=== PATIENT | female | born 1935 | race Caucasian/White ===

== ENCOUNTER 2019-02-17 17:42 | Emergency (ER) | payer MEDICARE ==
--- NOTE | 2019-02-17 18:59 | ED ---
Head Injury - HPI Summary HPI Summary: This pt is a 83 Y/O F presenting to [facility] for a fall that occurred while she was leaving the bathroom. She states that she had a loss of consciousness and remembers being woken up by her Son. She states that she has no memory of how she fell or when. She states that she has a headache that is rated a 3/10 in severity. He states that this happened around 1622. She denies any CP, palpitations, N/V, and any muscular injuries. She has no aggravating or alleviating symptoms. She states that she has a Hx of HTN. - History Of Current Complaint Chief Complaint: EDFall Stated Complaint: FALL, HEAD INJURY PER PT Time Seen by Provider: 02/17/19 18:44 Hx Obtained From: Patient Mechanism Of Injury: Fall From A Standing Position Onset/Duration: Started Hours Ago, Still Present Onset of Pain: Immediate Severity Currently: Mild Severity Initially: Mild Pain Intensity: 3 Pain Scale Used: 0-10 Numeric Location of Head Injury: Diffuse Location: Diffuse Aggravating Factor(s): Other: - nothing Alleviating Factor(s): Other: - nothing Associated Signs And Symptoms: Negative - CP, palpitations, N/V, and any muscular injuries., LOC Duration Unknown, Memory Loss, Headache - Allergies/Home Medications Allergies/Adverse Reactions: Allergies Allergy/AdvReac Type Severity Reaction Status Date / Time Sulfa (Sulfonamide Allergy Rash Verified 02/17/19 17:57 Antibiotics) Home Medications: Home Medications Aspirin 81 mg CHEW TAB* [Aspirin Low Dose TAB*] 162 mg PO DAILY 02/17/19 [ History Confirmed 02/17/19] Melatonin [Ra Melatonin] 10 mg PO BEDTIME 02/17/19 [History Confirmed 02/17/19] Meloxicam 7.5 mg PO BID 02/17/19 [History Confirmed 02/17/19] Oxycodone HCl 1 - 2 tab PO Q4HR PRN 02/17/19 [History Confirmed 02/17/19] Sertraline* [Zoloft*] 50 mg PO DAILY 02/17/19 [History Confirmed 02/17/19] amLODIPine TAB* [Norvasc 5 mg TAB*] 10 mg PO DAILY 02/17/19 [History Confirmed 02/17/19] PMH/Surg Hx/FS Hx/Imm Hx Previously Healthy: Yes Endocrine/Hematology History: Denies: Hx Diabetes Cardiovascular History: Reports: Hx Hypertension, Other Cardiovascular Problems/ Disorders - heart murmur: stable aortic valve stenosis Musculoskeletal History: Reports: Other Musculoskeletal History - Osteoarthritis Sensory History: Reports: Hx Contacts or Glasses, Hx Vision Problem - Double vision Opthamlomology History: Reports: Hx Contacts or Glasses Neurological History: Reports: Hx Migraine Psychiatric History: Reports: Hx Depression - Surgical History Surgery Procedure, Year, and Place: bilateral hip. carpal tunnel. C sections. total left knee replacement. cervical spine. Lumbar spine x2. Left wrist ORIF. Bilateral cataracts. Melanoma removal right heel 2018 Infectious Disease History: No Infectious Disease History: Denies: Traveled Outside the [place] in Last 30 Days - Family History Known Family History: Positive: Cardiac Disease, Hypertension, Other - CA colon - Social History Occupation: Retired Lives: Alone Alcohol Use: Occasionally Hx Substance Use: Yes Substance Use Type: Reports: Marijuana - medical Hx Tobacco Use: No Review of Systems Negative: Palpitations, Chest Pain Negative: Vomiting, Nausea Musculoskeletal: Negative - muscular injuries Neurological: Other - LOC, momory loss Positive: Headache All Other Systems Reviewed And Are Negative: Yes Physical Exam - Summary Physical Exam Summary: Constitutional: Well-developed, Well-nourished, Alert. (-) Distressed Skin: Warm, Dry HENT: Normocephalic; Atraumatic Eyes: Conjunctiva normal Neck: Musculoskeletal ROM normal neck. (-) JVD, (-) Stridor, (-) Tracheal deviation Cardio: Rhythm regular, rate normal, Heart sounds normal; Intact distal pulses; The pedal pulses are 2+ and symmetric. Radial pulses are 2+ and symmetric. (-) Murmur Pulmonary/Chest wall: Effort normal. (-) Respiratory distress, (-) Wheezes, (-) Rales Abd: Soft, (-) tenderness, (-) Distension, (-) Guarding, (-) Rebound Musculoskeletal: (-) Edema Lymph: (-) Cervical adenopathy Neuro: Alert, Oriented x3 Psych: Mood and affect Normal Triage Information Reviewed: Yes Vital Signs On Initial Exam: Initial Vitals Temp Pulse Resp BP Pulse Ox 97.5 F 82 16 148/61 97 02/17/19 17:54 02/17/19 17:54 02/17/19 17:54 02/17/19 17:54 02/17/19 17:54 Vital Signs Reviewed: Yes Diagnostics - Vital Signs Vital Signs Temp Pulse Resp BP Pulse Ox 02/17/19 17:54 97.5 F 82 16 148/61 97 - Laboratory Result Diagrams: 02/17/19 19:30 02/17/19 19:30 Lab Statement: Any lab studies that have been ordered have been reviewed, and results considered in the medical decision making process. - CT Brain CT Interpretation Completed By: Radiologist Summary of CT Findings: 1. Moderate chronic ischemic white matter change with areas of old deep white. matter or lacunar infarct. 2. Mild atrophy. 3. Otherwise negative noncontrast head CT. ED physician has reviewed this report. Cervical spine CT Interpretation Completed By: Radiologist Summary of CT Findings: 1. Status post laminectomies from C3-C6. 2. Multilevel degenerative changes with no significant spinal stenosis. There. are varying degrees of neural foraminal stenosis. 3. No acute fracture or subluxation. ED physician has reviewed this report. - EKG 1911 Cardiac Rate: NL - 78 BPM EKG Rhythm: Sinus Rhythm Summary of EKG Findings: EKG at 1911 shows NSR 78 BPM with one PVC. Otherwise normal [place] [address]/17/19. Head Injury Course/Dx Course Of Treatment: Patient is here after seen depositing after standing up from using the toilet. The patient hit her head and had no preceding symptoms. Patient had negative CT head and cervical spine. Patient had blood performed which is grossly unremarkable. Patient has no arrhythmia on her EKG. Patient does not need emergent admission for syncope. - Diagnoses Provider Diagnoses: Head injury Is Visit Related: No Discharge ED - Sign-Out/Discharge Documenting (check all that apply): Patient Departure - discharge Patient Received Moderate/Deep Sedation with Procedure: No - Discharge Plan Condition: Stable Disposition: HOME Patient Education Materials: Head Injury (ED) Referrals: [facility] [Outside] - 2 Days Additional Instructions: PLEASE RETURN TO THE EMERGENCY DEPARTMENT FOR ANY NEW OR WORSENING SYMPTOMS. Follow up with the [facility] in 1-3 days. - Billing Disposition and Condition Condition: STABLE Disposition: Home - Attestation Statements Document Initiated by Scribe: Yes Documenting Scribe: Ernesto Ashraf Provider For Whom Scribe is Documenting (Include Credential): Johnson Simeon MD Scribe Attestation: IErnesto, scribed for Johnson Simeon MD on 02/17/19 at 2124. Scribe Documentation Reviewed: Yes Provider Attestation: The documentation as recorded by the [email or web address] accurately reflects the service I personally performed and the decisions made by me, Johnson Simeon MD Status of Scribe Document: Viewed
[2019-02-17 19:36] LABS: ABS Eosinophils 0.2 10^3/ul (0-0.6); ABS Lymphocytes 1.4 10^3/ul (1.0-4.8); ABS Monocytes 0.8 10^3/ul (0-0.8); ABS Neutrophils 5.7 10^3/ul (1.5-7.7); Eosinophil % 2.3 %; Hematocrit 42 % (35-47); Hemoglobin 14.2 g/dL (12.0-16.0); Lymphocyte % 16.9 %; Mean Corpuscular HGB Conc 34 g/dL (31-36); Mean Corpuscular Hemoglobin 32 pg (27-31); Mean Corpuscular Volume 96 fL (80-97); Platelet Count 268 10^3/uL (150-450); Red Cell Distribution Width 15 % (10-15); White Blood Count 8.1 10^3/uL (3.5-10.8)
[2019-02-17 19:55] LABS: Albumin 3.9 g/dL (3.2-5.2); Albumin/Globulin Ratio 1.3 (1-3); BUN/Creatinine Ratio 26.3 (8-20); Calcium 9.4 mg/dL (8.6-10.3); EGFR Non-African American 56.2 (>60); Globulin 2.9 g/dL (2-4); Potassium 3.9 mmol/L (3.5-5.0); Total Bilirubin 0.4 mg/dL (0.2-1.0); Total Protein 6.8 g/dL (6.4-8.9)
[2019-02-17 19:56] LABS: Troponin I 0.03 ng/mL (<0.04)
[2019-02-17 20:39] VITALS: BP 138/74
== END 2019-02-17 20:30 | disposition home or self-care (01) ==
LOC: ED 17:42
DX: S06.9X9A Unspecified intracranial injury with loss of consciousness of unspecified duration, initial encounter (principal); W18.30XA Fall on same level, unspecified, initial encounter; Y93.01 Activity, walking, marching and hiking; Y92.009 Unspecified place in unspecified non-institutional (private) residence as the place of occurrence of the external cause; M50.30 Other cervical disc degeneration, unspecified cervical region; I10 Essential (primary) hypertension; G31.9 Degenerative disease of nervous system, unspecified; Z79.82 Long term (current) use of aspirin; F32.9 Major depressive disorder, single episode, unspecified; Z96.652 Presence of left artificial knee joint; Z96.643 Presence of artificial hip joint, bilateral; Z88.2 Allergy status to sulfonamides
CPT/HCPCS: 36415; 70450; 72125; 80053; 83880; 84484; 85025; 93005; 99283